=== PATIENT | male | born 1950 | race Caucasian/White ===

== ENCOUNTER 2020-08-29 15:59 | Inpatient (IN) | payer OTHER ==
[~2020-08-29] VITALS: Ht 182.9 cm; Wt 68.0 kg
[~2020-08-29 15:59] MED LIST: REVLIMID25 MG PO
[2020-08-29 16:55] LABS: HEMOGLOBIN 9.3 gm/dl (14.0-17.5); RED BLOOD COUNT 3.21 M/UL (4.20-5.50); WHITE BLOOD COUNT 7.3 K/UL (4.5-11.0)
[2020-08-29 17:18] LABS: BUN/CREATININE RATIO 24 (0-10)
[2020-08-30 05:06] LABS: HEMOGLOBIN 9.8 gm/dl (14.0-17.5); RED BLOOD COUNT 3.37 M/UL (4.20-5.50); WHITE BLOOD COUNT 6.4 K/UL (4.5-11.0)
[2020-08-30 05:23] LABS: BUN/CREATININE RATIO 24 (0-10)
[2020-08-30] MEDS ORDERED: ASPIRIN EC325 MG PO (16:39)
[2020-08-30] MEDS ORDERED: SYNTHROID50 MCG PO (16:40)
[2020-08-30] MEDS ORDERED: ZETIA10 MG PO (16:40)
[2020-08-30] MEDS ORDERED: ONDANSETRON HCL8 MG PO (16:46)
[2020-08-30] MEDS ORDERED: VANCOMYCIN HCL1 GM IV (16:47)
[2020-08-30] MEDS ORDERED: PROAIR HFA8.5 GM INH (16:47)
[2020-08-30] MEDS ORDERED: CRESTOR40 MG PO (16:47)
[2020-08-30] MEDS ORDERED: SPIRIVA18 MCG INH (16:49)
[2020-09-01 05:17] LABS: HEMOGLOBIN 8.4 gm/dl (14.0-17.5); RED BLOOD COUNT 2.92 M/UL (4.20-5.50); WHITE BLOOD COUNT 6.7 K/UL (4.5-11.0)
[2020-09-01 05:35] LABS: BUN/CREATININE RATIO 36 (0-10)
[2020-09-02 04:38] LABS: HEMOGLOBIN 8.8 gm/dl (14.0-17.5); RED BLOOD COUNT 3.01 M/UL (4.20-5.50); WHITE BLOOD COUNT 6.8 K/UL (4.5-11.0)
[2020-09-02 04:54] LABS: BUN/CREATININE RATIO 37 (0-10)
[2020-09-03 04:44] LABS: RED BLOOD COUNT 3.21 M/UL (4.20-5.50); WHITE BLOOD COUNT 8.2 K/UL (4.5-11.0)
[2020-09-03 05:06] LABS: BUN/CREATININE RATIO 46 (0-10)
[2020-09-03] MEDS ORDERED: FLOMAX 0.4 MG0.4 MG PO (11:05)
[2020-09-03] MEDS ORDERED: DEXAMETHASONE 44 MG PO (11:37)
[2020-09-03] MEDS ORDERED: LEVOFLOXACIN500 MG PO (11:37)
[2020-09-03] MEDS ORDERED: FUROSEMIDE20 MG PO (11:37)
[2020-10-04] MEDS ORDERED: ZOFRAN ODT 4 MG4 MG PO (20:19)
[2020-10-04] MEDS ORDERED: CLINDAMYCIN HC300 MG PO (20:19)
[2020-11-30] MEDS ORDERED: SULFAMETHOXAZO1 EACH PO (10:34)
== END 2020-09-03 14:36 | disposition home or self-care (01) | DRG 177 ==
LOC: ER1 15:59 → MED SURG 4 19:55 → CDU 19:55 → MED SURG 4 08-31 16:59
PROVIDERS: Emergency Medicine; Internal Medicine; ADMIT Internal Medicine
PROC: XW033E5 Introduction of Remdesivir Anti-infective into Peripheral Vein, Percutaneous Approach, New Technology Group 5 (ICD-10-PCS; principal; 2020-08-29)
PROC: 8E0ZXY6 Isolation (ICD-10-PCS; principal; 2020-08-29)
DX: U07.1 COVID-19 (principal); J12.82 Pneumonia due to coronavirus disease 2019; J96.01 Acute respiratory failure with hypoxia; I50.33 Acute on chronic diastolic (congestive) heart failure; I21.A1 Myocardial infarction type 2; E43 Unspecified severe protein-calorie malnutrition; C90.00 Multiple myeloma not having achieved remission; J44.1 Chronic obstructive pulmonary disease with (acute) exacerbation; I11.0 Hypertensive heart disease with heart failure; E88.09 Other disorders of plasma-protein metabolism, not elsewhere classified; E03.9 Hypothyroidism, unspecified; J44.9 Chronic obstructive pulmonary disease, unspecified; J64 Unspecified pneumoconiosis; D53.9 Nutritional anemia, unspecified; M70.32 Other bursitis of elbow, left elbow; N40.0 Benign prostatic hyperplasia without lower urinary tract symptoms; E78.5 Hyperlipidemia, unspecified; K21.9 Gastro-esophageal reflux disease without esophagitis; Z90.49 Acquired absence of other specified parts of digestive tract; J60 Coalworker's pneumoconiosis; I45.10 Unspecified right bundle-branch block; E86.0 Dehydration; R00.0 Tachycardia, unspecified; Z79.899 Other long term (current) drug therapy; Z79.82 Long term (current) use of aspirin
CPT/HCPCS: ECHO; 36415; 36600; 71045; 80048; 80053; 80202; 82550; 82553; 82803; 83605; 83735; 83874; 83880; 84484; 85025; 85379; 85610; 85730; 87040; 93005; 93306; 94640; 94664; 94760; 96365; 96366; 96367; 96372; 96375; 96376; 99285; J0696; J1650; J2405; J3370; J7030; J7070; Q9967; U0002

== ENCOUNTER → 2020-09-28 | Outpatient (CLI) | payer OTHER ==
[~2020-09-28] MED LIST changes: +ACETAMINOPHEN-1 EAC1 PO; +ACYCLOVIR400 MG PO; +ALPRAZOLAM0.5 MG PO; +ASPIRIN EC325 MG PO; +CEFUROXIME500 MG PO; +CLINDAMYCIN HC300 MG PO; +COLACE100 MG PO; +CRESTOR40 MG PO; +DAILY-VITE1 EACH PO; +DEXAMETHASONE 44 MG PO; +DOXYCYCLINE HY100 M2 PO; +DRONABINOL5 MG PO; +FLOMAX 0.4 MG0.4 MG PO; +FLORINEF 0.1 M0.1 MG PO; +FUROSEMIDE20 MG PO; +HYDROCODON-ACE1 EAC2 PO; +LEVOFLOXACIN500 MG PO; +LIDOCAINE PAIN1 EACH TOP; +ONDANSETRON HCL8 MG PO; +PERCOCET 5/325 T1 EA PO; +PHENERGAN 25 MG25 M1 PO; +POTASSIUM CHLO10 MEQ PO; +PROAIR HFA8.5 GM INH; +PROTONIX 40 MG40 M1 PO; +SODIUM BICARBO650 M1 PO; +SODIUM BICARBO650 MG PO; +SPIRIVA18 MCG INH; +SULFAMETHOXAZO1 EACH PO; +SYNTHROID50 MCG PO; +VANCOMYCIN HCL1 GM IV; +XANAX0.5 MG PO; +ZETIA10 MG PO; +ZOFRAN ODT 4 MG4 MG PO
== END ==
LOC: LAB 09:45
DX: C90.00 Multiple myeloma not having achieved remission (principal)
CPT/HCPCS: 36415; 86850; 86900; 86901

== ENCOUNTER → 2020-10-04 | Outpatient (CLI) | payer OTHER ==
[2020-10-07 14:14] LABS: M-SPIKE, % Comment: % (Not Observed); PROTEIN,TOTAL,URINE 431.5 mg/dL (Not Estab.)
== END ==
LOC: LBRF 16:10
PROVIDERS: Internal Medicine Hematology & Oncology
DX: C90.00 Multiple myeloma not having achieved remission (principal)
CPT/HCPCS: 84156; 84166; 86335

== ENCOUNTER 2020-10-05 13:18 | Inpatient (IN) | payer OTHER ==
[~2020-10-05] VITALS: Ht 182.9 cm; Wt 60.8 kg
[~2020-10-05 13:18] MED LIST changes: -ACETAMINOPHEN-1 EAC1 PO; -ACYCLOVIR400 MG PO; -ALPRAZOLAM0.5 MG PO; -CEFUROXIME500 MG PO; -COLACE100 MG PO; -DAILY-VITE1 EACH PO; -DOXYCYCLINE HY100 M2 PO; -DRONABINOL5 MG PO; -FLORINEF 0.1 M0.1 MG PO; -HYDROCODON-ACE1 EAC2 PO; -LIDOCAINE PAIN1 EACH TOP; -PERCOCET 5/325 T1 EA PO; -PHENERGAN 25 MG25 M1 PO; -POTASSIUM CHLO10 MEQ PO; -PROTONIX 40 MG40 M1 PO; -SODIUM BICARBO650 M1 PO; -SODIUM BICARBO650 MG PO; -SULFAMETHOXAZO1 EACH PO; -XANAX0.5 MG PO
[2020-10-05 14:34] LABS: HEMOGLOBIN 7.8 gm/dl (14.0-17.5); RED BLOOD COUNT 2.66 M/UL (4.20-5.50)
[2020-10-05 14:51] LABS: BUN/CREATININE RATIO 14 (0-10)
[2020-10-05] MEDS ORDERED: ACETAMINOPHEN-1 EAC1 PO (21:05)
[2020-10-05] MEDS ORDERED: PHENERGAN 25 MG25 M1 PO (21:06)
[2020-10-05] MEDS ORDERED: COLACE100 MG PO (21:06)
[2020-10-06 04:00] LABS: RED BLOOD COUNT 2.34 M/UL (4.20-5.50)
[2020-10-06 04:01] LABS: HEMOGLOBIN 6.8 gm/dl (14.0-17.5)
[2020-10-07 04:46] LABS: HEMOGLOBIN 8.1 gm/dl (14.0-17.5); WHITE BLOOD COUNT 10.1 K/UL (4.5-11.0)
[2020-10-07 04:51] LABS: RED BLOOD COUNT 2.8 M/UL (4.20-5.50)
[2020-10-07 18:12] LABS: HEMATOCRIT 20.2 % (37.5-51.0)
[2020-10-08 07:49] LABS: HEMOGLOBIN 8.5 gm/dl (14.0-17.5); RED BLOOD COUNT 3.06 M/UL (4.20-5.50); WHITE BLOOD COUNT 9.4 K/UL (4.5-11.0)
[2020-10-08 20:00] LABS: BORDETELLA PARAPERTUSSIS Not Detected (Not Detectd); CORONAVIRUS HKU1 Not Detected (Not Detectd); CORONAVIRUS NL63 Not Detected (Not Detectd); CORONAVIRUS OC43 Not Detected (Not Detectd); CORONOAVIRUS 229E Not Detected (Not Detectd); HUMAN METAPNEUMOVIRUS Not Detected (Not Detectd); HUMAN RHINOVIRUS/ENTEROVIRUS Not Detected (Not Detectd); INFLUENZA A Not Detected (Not Detectd); INFLUENZA B Not Detected (Not Detectd); PARAINFLUENZA VIRUS 1 Not Detected (Not Detectd); PARAINFLUENZA VIRUS 2 Not Detected (Not Detectd); PARAINFLUENZA VIRUS 3 Not Detected (Not Detectd); PARAINFLUENZA VIRUS 4 Not Detected (Not Detectd); RESPIRATORY SYNCYTIAL VIRUS Not Detected (Not Detectd)
[2020-10-08 20:01] LABS: BORDETELLA PERTUSSIS Not Detected (Not Detectd); CHLAMYDIA PNEUMONIAE Not Detected (Not Detectd); MYCOPLASMA PNEUMONIAE Not Detected (Not Detectd)
[2020-10-08 21:29] LABS: SARS-CoV-2 NOT DETECTED (Not Detectd)
[2020-10-09 03:04] LABS: HEMOGLOBIN 7.4 gm/dl (14.0-17.5); RED BLOOD COUNT 2.64 M/UL (4.20-5.50); WHITE BLOOD COUNT 7.5 K/UL (4.5-11.0)
[2020-10-10 02:59] LABS: HEMOGLOBIN 8.4 gm/dl (14.0-17.5); WHITE BLOOD COUNT 6.4 K/UL (4.5-11.0)
[2020-10-10 03:04] LABS: RED BLOOD COUNT 2.93 M/UL (4.20-5.50)
[2020-10-11 03:59] LABS: HEMOGLOBIN 8.1 gm/dl (14.0-17.5); RED BLOOD COUNT 2.89 M/UL (4.20-5.50); WHITE BLOOD COUNT 6.4 K/UL (4.5-11.0)
[2020-10-12 09:13] LABS: HEMOGLOBIN 7.2 gm/dl (14.0-17.5); RED BLOOD COUNT 2.67 M/UL (4.20-5.50)
[2020-10-12 09:16] LABS: WHITE BLOOD COUNT 3.5 K/UL (4.5-11.0)
[2020-10-13 05:30] LABS: RED BLOOD COUNT 2.16 M/UL (4.20-5.50); WHITE BLOOD COUNT 2.2 K/UL (4.5-11.0)
[2020-10-13 05:31] LABS: HEMOGLOBIN 6.2 gm/dl (14.0-17.5)
[2020-10-14 03:58] LABS: HEMOGLOBIN 7.1 gm/dl (14.0-17.5); WHITE BLOOD COUNT 1.9 K/UL (4.5-11.0)
[2020-10-14 04:33] LABS: RED BLOOD COUNT 2.41 M/UL (4.20-5.50)
[2020-10-14] MEDS ORDERED: DOXYCYCLINE HY100 M2 PO (13:04)
[2020-10-14] MEDS ORDERED: LIDOCAINE PAIN1 EACH TOP (13:04)
[2020-10-14] MEDS ORDERED: PERCOCET 5/325 T1 EA PO (13:04)
[2020-10-14] MEDS ORDERED: SODIUM BICARBO650 M1 PO (13:04)
[2020-10-14] MEDS ORDERED: ALPRAZOLAM0.5 MG PO (13:04)
[2020-11-30] MEDS ORDERED: SULFAMETHOXAZO1 EACH PO (10:34)
== END 2020-10-14 17:50 | disposition home or self-care (01) | DRG 871 ==
LOC: ER1 13:18 → CDU 17:25 → PROG CARE 17:25
PROVIDERS: Emergency Medicine; Internal Medicine; Internal Medicine Nephrology; Physician Assistant; Registered Nurse; ADMIT Internal Medicine
PROC: 30233N1 Transfusion of Nonautologous Red Blood Cells into Peripheral Vein, Percutaneous Approach (ICD-10-PCS; principal; 2020-10-06)
PROC: 3E033XZ Introduction of Vasopressor into Peripheral Vein, Percutaneous Approach (ICD-10-PCS; 2020-10-06)
PROC: B24BZZZ Ultrasonography of Heart with Aorta (ICD-10-PCS; 2020-10-10)
DX: A41.9 Sepsis, unspecified organism (principal); J18.9 Pneumonia, unspecified organism; R65.21 Severe sepsis with septic shock; E43 Unspecified severe protein-calorie malnutrition; J96.21 Acute and chronic respiratory failure with hypoxia; I21.A1 Myocardial infarction type 2; J96.11 Chronic respiratory failure with hypoxia; C90.00 Multiple myeloma not having achieved remission; E85.9 Amyloidosis, unspecified; M00.9 Pyogenic arthritis, unspecified; N17.9 Acute kidney failure, unspecified; E87.2 Acidosis; E87.0 Hyperosmolality and hypernatremia; D61.818 Other pancytopenia; M70.32 Other bursitis of elbow, left elbow; N18.30 Chronic kidney disease, stage 3 unspecified; D63.1 Anemia in chronic kidney disease; E03.9 Hypothyroidism, unspecified; E78.5 Hyperlipidemia, unspecified; N40.0 Benign prostatic hyperplasia without lower urinary tract symptoms; E88.09 Other disorders of plasma-protein metabolism, not elsewhere classified; I95.9 Hypotension, unspecified; R63.4 Abnormal weight loss; R77.8 Other specified abnormalities of plasma proteins; E86.0 Dehydration; R73.9 Hyperglycemia, unspecified; J84.112 Idiopathic pulmonary fibrosis; Z85.828 Personal history of other malignant neoplasm of skin; Z80.42 Family history of malignant neoplasm of prostate; Z80.1 Family history of malignant neoplasm of trachea, bronchus and lung; Z86.16 Personal history of COVID-19; Z90.49 Acquired absence of other specified parts of digestive tract
CPT/HCPCS: 0240U; 36415; 36430; 71045; 73080; 80048; 80053; 80202; 81001; 82272; 82533; 82550; 82553; 82565; 82570; 82607; 82728; 82747; 82962; 83036; 83540; 83550; 83605; 83690; 83735; 83874; 83880; 83921; 84132; 84156; 84439; 84443; 84484; 85025; 85027; 85049; 85610; 85652; 85730; 86140; 86850; 86870; 86880; 86900; 86901; 86920; 86922; 87040; 87086; 87633; 87635; 93005; 93308; 94640; 94664; 94760; 96365; 96366; 96368; 96374; 96375; 96376; 97110-GP-CQ; 97116-GP-CQ; 97161; 99284; 99285; C9113; J1644; J1650; J2020; J2185; J2405; J2543; J3370; J3475; J3480; J7030; J7070; P9016; P9045; P9047

== ENCOUNTER 2020-11-08 10:39 | Inpatient (IN) | payer OTHER ==
[~2020-11-08] VITALS: Ht 182.9 cm; Wt 63.5 kg
[~2020-11-08 10:39] MED LIST changes: +ACETAMINOPHEN-1 EAC1 PO; +ALPRAZOLAM0.5 MG PO; +COLACE100 MG PO; +DOXYCYCLINE HY100 M2 PO; +LIDOCAINE PAIN1 EACH TOP; +PERCOCET 5/325 T1 EA PO; +PHENERGAN 25 MG25 M1 PO; +SODIUM BICARBO650 M1 PO
[2020-11-08 12:14] LABS: RED BLOOD COUNT 2.25 M/UL (4.20-5.50); WHITE BLOOD COUNT 7.8 K/UL (4.5-11.0)
[2020-11-08 12:16] LABS: HEMOGLOBIN 6.7 gm/dl (14.0-17.5)
[2020-11-08 12:36] LABS: BUN/CREATININE RATIO 14 (0-10)
[2020-11-08] MEDS ORDERED: ACYCLOVIR400 MG PO (16:39)
[2020-11-08] MEDS ORDERED: REVLIMID25 MG PO (18:25)
[2020-11-08] MEDS ORDERED: DRONABINOL5 MG PO (18:28)
[2020-11-08] MEDS ORDERED: XANAX0.5 MG PO (18:28)
[2020-11-08] MEDS ORDERED: HYDROCODON-ACE1 EAC2 PO (18:29)
[2020-11-08] MEDS ORDERED: PROTONIX 40 MG40 M1 PO (18:29)
[2020-11-08] MEDS ORDERED: DAILY-VITE1 EACH PO (18:31)
[2020-11-08] MEDS ORDERED: DEXAMETHASONE 44 MG PO (21:03)
[2020-11-08] MEDS ORDERED: POTASSIUM CHLO10 MEQ PO (21:04)
[2020-11-08] MEDS ORDERED: SODIUM BICARBO650 MG PO (22:06)
[2020-11-09 04:24] LABS: RED BLOOD COUNT 2.11 M/UL (4.20-5.50)
[2020-11-09 04:34] LABS: WHITE BLOOD COUNT 9.9 K/UL (4.5-11.0)
[2020-11-09 04:35] LABS: HEMOGLOBIN 6.3 gm/dl (14.0-17.5)
[2020-11-09 04:50] LABS: BUN/CREATININE RATIO 12 (0-10)
[2020-11-10 05:26] LABS: HEMOGLOBIN 9.8 gm/dl (14.0-17.5); RED BLOOD COUNT 3.29 M/UL (4.20-5.50); WHITE BLOOD COUNT 10.3 K/UL (4.5-11.0)
[2020-11-11 03:01] LABS: HEMOGLOBIN 8.7 gm/dl (14.0-17.5); WHITE BLOOD COUNT 8.2 K/UL (4.5-11.0)
[2020-11-11 03:06] LABS: RED BLOOD COUNT 2.92 M/UL (4.20-5.50)
[2020-11-12 01:32] LABS: ADENOVIRUS F 40/41 Not Detected (Negative); ASTROVIRUS Not Detected (Negative); CAMPYLOBACTER Not Detected (Negative); CLOSTRIDIUM DIFFICILE TOX A/B Not Detected (Negative); CRYPTOSPORIDIUM Not Detected (Negative); E.COLI 0157 Not Detected (Negative); ENTAMOEBA HISTOLYTICA Not Detected (Negative); ENTEROAGGREGATIVE E.COLI (EAEC Not Detected (Negative); ENTEROPATHOGENIC E.COLI (EPEC) Not Detected (Negative); ENTEROTOXIGENIC E.COLI (ETEC) Not Detected (Negative); GIARDIA LAMBLIA Not Detected (Negative); NOROVIRUS GI/GII Not Detected (Negative); PLESIOMONAS SHIGELLOIDES Not Detected (Negative); ROTOVIRUS A Not Detected (Negative); SALMONELLA Not Detected (Negative); SAPOVIRUS Not Detected (Negative); SHIG/ENTEROINVAS.ECOLI (EIEC) Not Detected (Negative); SHIGA-LIK TOX.PRO.E.COLI (STEC Not Detected (Negative); VIBRIO Not Detected (Negative); VIBRIO CHOLERAE Not Detected (Negative); YERSINIA ENTEROCOLITICA Not Detected (Negative)
[2020-11-12 05:33] LABS: HEMOGLOBIN 7.8 gm/dl (14.0-17.5); RED BLOOD COUNT 2.64 M/UL (4.20-5.50)
[2020-11-12 05:43] LABS: WHITE BLOOD COUNT 5.9 K/UL (4.5-11.0)
[2020-11-13 00:44] LABS: RED BLOOD COUNT 2.28 M/UL (4.20-5.50); WHITE BLOOD COUNT 3.5 K/UL (4.5-11.0)
[2020-11-13 00:45] LABS: HEMOGLOBIN 6.7 gm/dl (14.0-17.5)
[2020-11-13 21:05] LABS: HEMOGLOBIN 8.7 gm/dl (14.0-17.5)
--- NOTE | 2020-11-14 04:35 | NUR ---
GAVE REPORT TO ZOË OCAMPO.
[2020-11-14 04:51] LABS: HEMOGLOBIN 8.1 gm/dl (14.0-17.5); WHITE BLOOD COUNT 3.2 K/UL (4.5-11.0)
[2020-11-14 05:16] LABS: RED BLOOD COUNT 2.7 M/UL (4.20-5.50)
--- NOTE | 2020-11-14 05:34 | NUR ---
PT TRANSFERRED TO PCU WITH ALL BELONGINGS. CALL LÓPEZ AND FLUIDS WITHIN REACH, PT IS WATCHING TV IN NO DISTRESS.
[2020-11-14] MEDS ORDERED: CEFUROXIME500 MG PO (17:05)
[2020-11-14] MEDS ORDERED: FLORINEF 0.1 M0.1 MG PO (17:05)
[2020-11-30] MEDS ORDERED: SULFAMETHOXAZO1 EACH PO (10:34)
== END 2020-11-14 18:31 | disposition home or self-care (01) | DRG 698 ==
LOC: ER1 10:39 → CDU 15:49 → CCU 15:49 → PROG CARE 11-14 03:53
PROVIDERS: Family Medicine; Internal Medicine; Physician Assistant; ADMIT Internal Medicine
PROC: 3E033XZ Introduction of Vasopressor into Peripheral Vein, Percutaneous Approach (ICD-10-PCS; principal; 2020-11-08)
PROC: 02HV33Z Insertion of Infusion Device into Superior Vena Cava, Percutaneous Approach (ICD-10-PCS; 2020-11-08)
PROC: 30233N1 Transfusion of Nonautologous Red Blood Cells into Peripheral Vein, Percutaneous Approach (ICD-10-PCS; 2020-11-09)
DX: T83.511A Infection and inflammatory reaction due to indwelling urethral catheter, initial encounter (principal); A41.89 Other specified sepsis; R65.21 Severe sepsis with septic shock; E43 Unspecified severe protein-calorie malnutrition; D61.810 Antineoplastic chemotherapy induced pancytopenia; C90.00 Multiple myeloma not having achieved remission; Z20.822 Contact with and (suspected) exposure to COVID-19; J96.11 Chronic respiratory failure with hypoxia; E85.89 Other amyloidosis; N17.9 Acute kidney failure, unspecified; K52.1 Toxic gastroenteritis and colitis; Z68.1 Body mass index [BMI] 19.9 or less, adult; N39.0 Urinary tract infection, site not specified; E03.9 Hypothyroidism, unspecified; E83.42 Hypomagnesemia; D69.59 Other secondary thrombocytopenia; E78.5 Hyperlipidemia, unspecified; B96.1 Klebsiella pneumoniae [K. pneumoniae] as the cause of diseases classified elsewhere; D64.81 Anemia due to antineoplastic chemotherapy; N18.30 Chronic kidney disease, stage 3 unspecified; R53.81 Other malaise; T45.1X5A Adverse effect of antineoplastic and immunosuppressive drugs, initial encounter; J84.112 Idiopathic pulmonary fibrosis; E87.6 Hypokalemia; F41.9 Anxiety disorder, unspecified; G89.29 Other chronic pain; N40.0 Benign prostatic hyperplasia without lower urinary tract symptoms; E86.0 Dehydration; Z86.16 Personal history of COVID-19; Z90.49 Acquired absence of other specified parts of digestive tract; Z85.828 Personal history of other malignant neoplasm of skin; Z80.42 Family history of malignant neoplasm of prostate; Z80.1 Family history of malignant neoplasm of trachea, bronchus and lung
CPT/HCPCS: 36415; 36430; 71045; 72040; 73030; 80048; 80053; 81001; 82550; 82553; 83605; 83735; 83874; 84132; 84484; 85014; 85018; 85025; 85610; 86850; 86900; 86901; 86920; 86922; 87040; 87077; 87086; 87186; 87507; 93005; 94640; 94664; 94760; 97161; 99285; C1751; J0696; J2370; J2405; J2543; J3370; J3475; J7030; J7040; J7050; J7070; P9016; P9047; U0002

== ENCOUNTER → 2020-11-30 | Day surgery (SDC) | payer OTHER ==
[~2020-11-30] MED LIST changes: +ACYCLOVIR400 MG PO; +CEFUROXIME500 MG PO; +DAILY-VITE1 EACH PO; +DRONABINOL5 MG PO; +FLORINEF 0.1 M0.1 MG PO; +HYDROCODON-ACE1 EAC2 PO; +POTASSIUM CHLO10 MEQ PO; +PROTONIX 40 MG40 M1 PO; +SODIUM BICARBO650 MG PO; +SULFAMETHOXAZO1 EACH PO; +XANAX0.5 MG PO
[2020-11-30 08:28] LABS: HEMOGLOBIN 9.1 gm/dl (14.0-17.5); RED BLOOD COUNT 3.14 M/UL (4.20-5.50); WHITE BLOOD COUNT 7.2 K/UL (4.5-11.0)
--- NOTE | 2020-11-30 14:59 | NUR ---
CONSULTED FOR EVALUATION POST FEEDING TUBE PLACEMENT. PT HAS MULTIPLE MYELOMA AND IS S/P COVID IN AUGUST, HAS DECLINED OF RECENT WITH WT LOSS AND DECREASED APPETITE WHICH HAS CAUSE POOR PO INTAKES. PT HAD PEG TUBE PLACED SOLE NUTRITION SOURCE, PTS FAMILY STATING THAT THEY WOULD LIKE TF TO MEET 110% OF PTS NEEDS BECAUSE THE PT EATS SO LITTLE. DR. SMITH AND FAMILY AGREED THAT FEEDING OVER 12HR PERIOD DURING THE NIGHT WOULD WORK BEST, SO RECOMMEND TWOCAL HN AT 75ML/HR FOR 12HRS WITH 200ML FLUSH Q4 HOURS. WAS CALLED BY [facility] AND TOLD THAT THEY COULD NOT SUPPLY TWOCAL HN R/T INSURANCE PURPOSES AND ASKED IF WE COULD CHANGE ORDER TO USE JEVITY. INFORMED MASTIC MAN THAT WE COULD, BUT THE AMOUNT OF TIME USED TO INFUSE THE FEEDING WOULD NEED TO BE EXTENDED TO REDUCE THE AMOUNT OF VOLUME THAT WAS GIVEN TO PT. MASTIC MAN ENCOURAGE CHANGE IN TF TO 16HRS WITH JEVITY. WENT TO WRITE NEW ORDER IN PTS CHART, THOUGH PTS CHART NO LONGER IN OUTPATIENT SURGERY WITH PT ALREADY DC'D. SPOKE WITH [facility] WHO ENCOURAGED RD TO WRITE NEW NOTE AND TAKE TO MEDICAL RECORDS TO BE PLACED WITH CHART, SO COMMUNICATED THIS TO MASTIC MAN AT [facility] WHO ALSO STATED SHE NEEDED AN MD SIGNATURE. REFERRED MASTIC MAN BACK TO [facility] TO OBTAIN. HAVE WRITTEN NEW ORDER THAT WILL BE PLACED IN PTS CHART FOR JEVITY 1.5 AT 75ML/HR TO BE GIVEN OVER 16HR PERIOD WHICH WILL PROVIDE 1800 KCAL, 76 G PRO, AND 912 ML FREE WATER WITH RECOMMENDED 200ML FREE WATER FLUSH Q6HRS TO BEST MEET PTS NEEDS OF 1758 KCAL (MSJ X 1.3 SF FOR UNDERWEIGHT) AND 55-110 G PRO (1-2 G/KG ABW FOR UNDERWEIGHT). ENCOURAGE PTS FAMILY TO CALL RD'S IF QUESTIONS ARISE.
== END | disposition home or self-care (01) ==
LOC: OR 07:47
PROVIDERS: Internal Medicine Gastroenterology
DX: K29.71 Gastritis, unspecified, with bleeding (principal); C90.00 Multiple myeloma not having achieved remission; D64.9 Anemia, unspecified; Z80.42 Family history of malignant neoplasm of prostate
CPT/HCPCS: 85025; 85610; 85730; J0295; J2001; J2704; J7040

== ENCOUNTER → 2020-12-13 | Outpatient (CLI) | payer OTHER ==
[2020-12-13 11:35] LABS: HEMOGLOBIN 6.9 gm/dl (14.0-17.5)
== END ==
LOC: LAB 10:43
PROVIDERS: Internal Medicine Hematology & Oncology
DX: C90.00 Multiple myeloma not having achieved remission (principal)
CPT/HCPCS: 36415; 85014; 85018; 86850; 86900; 86901; 86920; 86922; P9016

== ENCOUNTER → 2020-12-14 | Outpatient (CLI) | payer OTHER ==
[~2020-12-14] VITALS: Ht 182.9 cm; Wt 63.5 kg
== END ==
LOC: OPSV 12-10 10:00
DX: D64.9 Anemia, unspecified (principal); C90.00 Multiple myeloma not having achieved remission
CPT/HCPCS: 36430; 96374; 96375; J1940; P9016

== ENCOUNTER 2020-12-24 13:13 | Emergency (ER) | payer OTHER ==
[2020-12-24 13:50] LABS: RED BLOOD COUNT 2.71 M/UL (4.20-5.50); WHITE BLOOD COUNT 4.6 K/UL (4.5-11.0)
[2020-12-24 14:45] LABS: BUN/CREATININE RATIO 28 (0-10)
== END 2020-12-24 18:18 | disposition home or self-care (01) ==
LOC: ER1 13:13
PROVIDERS: Physician Assistant Medical
DX: D64.9 Anemia, unspecified (principal); I95.9 Hypotension, unspecified; J84.10 Pulmonary fibrosis, unspecified; C90.00 Multiple myeloma not having achieved remission; R77.8 Other specified abnormalities of plasma proteins; D69.6 Thrombocytopenia, unspecified; Z51.11 Encounter for antineoplastic chemotherapy
CPT/HCPCS: 71045; 80053; 81001; 82550; 82553; 83605; 83874; 83880; 84484; 85025; 85610; 93005; 99285; J7030

== ENCOUNTER → 2021-01-04 | Outpatient (CLI) | payer OTHER ==
[~2021-01-04] VITALS: Ht 182.9 cm; Wt 63.5 kg
== END ==
LOC: OPSV 06:55
DX: C90.00 Multiple myeloma not having achieved remission (principal); Z79.899 Other long term (current) drug therapy
CPT/HCPCS: 82533; 96374; J0834

== ENCOUNTER → 2021-01-12 | Outpatient (CLI) | payer OTHER ==
[2021-01-12 15:46] LABS: HEMOGLOBIN 6.4 gm/dl (14.0-17.5)
== END ==
LOC: LAB 13:57
PROVIDERS: Internal Medicine Hematology & Oncology
DX: D64.9 Anemia, unspecified (principal)
CPT/HCPCS: 36415; 85014; 85018; 86850; 86900; 86901; 86920; 86922; P9016

== ENCOUNTER → 2021-01-13 | Outpatient (CLI) | payer OTHER ==
[~2021-01-13] VITALS: Ht 182.9 cm; Wt 63.5 kg
== END ==
LOC: OPSV 09:00
DX: D64.9 Anemia, unspecified (principal)
CPT/HCPCS: 36430; 96374; 96375; J1940; J2930; J7050; P9016